=== PATIENT | female | born 1965 | race Caucasian/White ===

== ENCOUNTER → 2018-12-24 | Outpatient (CLI) | payer SELFPAY | END | disposition home or self-care (01) | LOC: LAB 15:43 → LAB SHORT 15:43 | DX: L08.9 Local infection of the skin and subcutaneous tissue, unspecified (principal) | CPT/HCPCS: 87070; 87075; 87205 ==

== ENCOUNTER 2021-04-03 16:52 | Inpatient (IN) | payer OTHER ==
[~2021-04-03] VITALS: Ht 160 cm; Wt 85.0 kg
[2021-04-03 17:41] LABS: Hematocrit 46.1 % (33.0-51.0); Mean Corpuscular HGB 31.7 pg (26.0-34.0); Mean Corpuscular HGB Conc 34.7 g/dL (31.5-36.5); Mean Corpuscular Volume 92 fL (80-100); Mean Platelet Volume 11.5 fL (9.1-12.4); Platelet Count 271 K/mm3 (150-400); RDW Coefficient Variation 12.6 % (11.7-14.2); RDW Standard Deviation 42.2 fL (35.1-46.3); Red Blood Cell Count 5.04 M/mm3 (3.80-5.20); White Blood Cell Count 18.71 K/mm3 (4.00-11.30)
[2021-04-03 18:02] LABS: Albumin, Blood 3.1 g/dL (3.4-5.0); Albumin/Globulin Ratio 0.7 (0.8-1.8); Bilirubin, Total 0.8 mg/dL (0.1-1.0); Bun/Creatinine Ratio 22.3 (12.0-20.0); Calcium, Blood 9.9 mg/dL (8.5-10.1); Creatinine, Blood 1.03 mg/dL (0.40-1.00); Globulin, Blood 4.5 g/dL (2.2-4.0); Potassium, Blood 4.2 mmol/L (3.5-5.5); Total Protein, Blood 7.6 g/dL (6.4-8.2)
[2021-04-03 18:16] LABS: BAND PERCENT MAN 33 % (0-8); BASOPHILS PERCENT MAN 0 % (0-2); EOSINOPHILS PERCENT MAN 0 % (0-6); LYMPHOCYTES ABSOLUTE MAN 0.93 K/mm3 (0.84-5.20); LYMPHOCYTES PERCENT MAN 5 % (21-46); METAMYELOCYTE ABSOLUTE MAN 0.18 K/mm3 (0.00-0.00); METAMYELOCYTE PERCENT MAN 1 % (0-0); MONOCYTES ABSOLUTE MAN 0.18 K/mm3 (0.16-1.47); MONOCYTES PERCENT MAN 1 % (4-13); SEG NEUTROPHILS PERCENT MAN 60 % (41-73); TOTAL CELLS COUNTED 100
[2021-04-03 21:09] LABS: Source, Urine Clean Catch
[2021-04-03 21:32] LABS: Appearance, Urine Clear (Clear); Bilirubin, Urine Neg (Neg); Blood, Urine 1+ (Neg); Color, Urine Yellow (P-Yellow); Glucose Qualitative, Urine Neg (Neg); Ketones, Urine Neg (Neg); Leukocyte Esterase, Urine Neg (Neg); Nitrite, Urine Neg (Neg); Protein, Urine 1+ (Neg); Specific Gravity, Urine 1.015 (1.003-1.022); Urobilinogen, Urine NORM (Normal); pH, Urine 6.5 (5.0-8.0)
[2021-04-03 21:44] LABS: International Normalized Ratio 1.19; Prothrombin Time Results 12.4 Sec (9.7-11.5)
[2021-04-03 22:27] LABS: Bacteria Few /hpf; Squamous Epithelial Cells Rare /hpf (Few); White Blood Cells, Urine 0-2 /hpf (0-5)
--- NOTE | 2021-04-04 04:09 | NUR ---
SHIFT SUMMARY: RECEIVED PT. FROM ER, AOX4, INDEPENDENT WITH AMBULATION. NO COUGING NOTED SINCE ADMISSION, BREATH SOUNDS DIMINISHED AT THE BASES. VOIDING WELL TO THE BATHROOM. VASCULAR ACCESS TO RIGHT AC INFUSING WELL. COMPLAINTS OF ABDOMINAL PAIN MEDICATED, SEE EMAR. NPO STARTED SINCE ADMISSION TO THE UNIT.PT. DENIES SOB/LABORED BREATHING. O2 SAT OF 95% ON RA.PT. DENIES TAKING ANY DAILY MEDICATIONS. NO NEW ISSUES NOTED, WILL CONTINUE TO MONITOR.
[2021-04-04 04:49] LABS: BASOPHILS ABSOLUTE AUTO 0.01 K/mm3 (0.00-0.23); BASOPHILS PERCENT AUTO 0 % (0-2); Hematocrit 37.8 % (33.0-51.0); Hemoglobin 12.9 g/dL (11.5-16.0); Mean Corpuscular HGB Conc 34.1 g/dL (31.5-36.5); Mean Corpuscular Volume 94 fL (80-100); Mean Platelet Volume 11.1 fL (9.1-12.4); Platelet Count 207 K/mm3 (150-400); RDW Coefficient Variation 12.5 % (11.7-14.2); RDW Standard Deviation 43.6 fL (35.1-46.3); Red Blood Cell Count 4.03 M/mm3 (3.80-5.20); White Blood Cell Count 11.79 K/mm3 (4.00-11.30)
[2021-04-04 04:58] LABS: EOSINOPHILS PERCENT AUTO 0 % (0-6); IMMATURE GRAN ABSOLUTE AUTO 0.09 K/mm3 (0.00-0.10); IMMATURE GRAN PERCENT AUTO 1 % (0-1); LYMPHOCYTES ABSOLUTE AUTO 0.78 K/mm3 (0.84-5.20); LYMPHOCYTES PERCENT AUTO 7 % (21-46); MONOCYTES ABSOLUTE AUTO 0.19 K/mm3 (0.16-1.47); MONOCYTES PERCENT AUTO 2 % (4-13); NEUTROPHILS ABSOLUTE AUTO 10.72 K/mm3 (1.96-9.15); NEUTROPHILS PERCENT AUTO 91 % (41-73)
[2021-04-04 05:07] LABS: Anion Gap 6 mmol/L (6-16); Blood Urea Nitrogen 16 mg/dL (8-24); Bun/Creatinine Ratio 22.5 (12.0-20.0); CO2, Blood 24 mmol/L (21-32); Calcium, Blood 8.7 mg/dL (8.5-10.1); Chloride, Blood 103 mmol/L (98-108); Creatinine, Blood 0.71 mg/dL (0.40-1.00); Glomerular Filtration Rate >60 (60-); Glucose, Blood 113 mg/dL (70-99); Potassium, Blood 4.1 mmol/L (3.5-5.5); Sodium, Blood 133 mmol/L (136-145)
--- NOTE | 2021-04-04 06:13 | NUR ---
PT. REFUSED TO WEAR HOSPITAL SOCKS, SHE PREFERRED TO USE HER OWN SLIPPERS.
--- NOTE | 2021-04-04 14:21 | NUR ---
History, Chart, Medications and Allergies reviewed before start of procedure.Patient confirms NPO status and agrees with scheduled surgery. Pre-Op teaching done. Pt verbalizes understanding.
--- NOTE | 2021-04-04 18:27 | NUR ---
PATIENT IS CURRENTLY IN SURGERY. PATIENT LEFT THE FLOOR AT ABOUT [address] ANDERSON TODAY.
--- NOTE | 2021-04-04 19:33 | NUR ---
RECEIVED PATIENT FROM OR ABOUT 1920. ALERT AND ORIENTED X'S 4, NO ACUTE DISTRESS NOTED, PATIENT DENIES PAIN OR DISCOMFORT. RESPIRATIONS EVEN AND UNLABORED, PATIENT IS DIAPHORETIC, VS STABLE. COLOSTOMY IN PLACE TO LLQ, STOMA DARK RED. ALATORRE CATHETER IN PLACE, PATENT. RESTING PEACEFULLY IN BED, SAFETY MAINTAINED, CALL JOHNSON IN REACH.
--- NOTE | 2021-04-04 19:49 | NUR ---
AZIZA DRESSING CLEAN DRY AND INTACT TO MIDLINE ABDOMEN.
[2021-04-05 05:34] LABS: Hematocrit 40.5 % (33.0-51.0); Hemoglobin 13.1 g/dL (11.5-16.0); Mean Corpuscular HGB 31.4 pg (26.0-34.0); Mean Corpuscular HGB Conc 32.3 g/dL (31.5-36.5); Mean Corpuscular Volume 97 fL (80-100); Mean Platelet Volume 11.8 fL (9.1-12.4); Platelet Count 192 K/mm3 (150-400); RDW Coefficient Variation 12.8 % (11.7-14.2); RDW Standard Deviation 45.8 fL (35.1-46.3); Red Blood Cell Count 4.17 M/mm3 (3.80-5.20); White Blood Cell Count 9.42 K/mm3 (4.00-11.30)
[2021-04-05 05:58] LABS: BAND PERCENT MAN 7 % (0-8); BASOPHILS PERCENT MAN 0 % (0-2); EOSINOPHILS PERCENT MAN 0 % (0-6); LYMPHOCYTES ABSOLUTE MAN 0.75 K/mm3 (0.84-5.20); LYMPHOCYTES PERCENT MAN 8 % (21-46); MONOCYTES ABSOLUTE MAN 0.18 K/mm3 (0.16-1.47); MONOCYTES PERCENT MAN 2 % (4-13); NEUTROPHILS ABSOLUTE MAN 8.47 K/mm3 (1.96-9.15); SEG NEUTROPHILS PERCENT MAN 83 % (41-73); TOTAL CELLS COUNTED 100
--- NOTE | 2021-04-05 06:16 | NUR ---
MEDICATED WITH FENTANYL 50 MCG ALMOST Q2HRS FOR PAIN MANAGEMENT. MEDICATED WITH TORADOL 30MG IV X'S 1, EFFECTIVE. COLOSOTOMY TO LLQ CLEAN DRY AND INTACT WITH SMALL AMOUNT OF BROWN STOOL. BOWEL SOUNDS PRESENT. AZIZA DRESSING CLEAN DRY AND INTACT TO MIDLINE ABDOMEN. ALATORRE CATHTER DRAINING TEA COLORED URINE. LR INFUSING AT 100ML/HR. CURRENTLY RESTING PEACEFULLY IN BED, SAFETY MAINTAINED, CALL JOHNSON IN REACH.
[2021-04-05 06:40] LABS: Anion Gap 7 mmol/L (6-16); Blood Urea Nitrogen 13 mg/dL (8-24); Bun/Creatinine Ratio 17.3 (12.0-20.0); CO2, Blood 25 mmol/L (21-32); Calcium, Blood 8.1 mg/dL (8.5-10.1); Chloride, Blood 103 mmol/L (98-108); Creatinine, Blood 0.75 mg/dL (0.40-1.00); Glomerular Filtration Rate >60 (60-); Glucose, Blood 133 mg/dL (70-99); Potassium, Blood 5.3 mmol/L (3.5-5.5); Sodium, Blood 135 mmol/L (136-145)
--- NOTE | 2021-04-05 09:38 | NUR ---
PATIENT UP TO SIDE OF BED AND THEN STAND, TOLERATE WELL SO AMBULATE TO DOOR AND BACK TO BED. TORADOL GIVEN FOR PAIN MANAGEMENT AND PT. VERBALIZE RELIEF. TAKING CLEAR LIQUID BREAKFAST WITHOUT PROBLEM, DENIES NAUSEA. SCD'S PLACED BACK ON PT. AND PT. STATES SHE WANTS TO TAKE NAP. VSS. SATS 95% ON ROOM AIR, OXYGEN REMOVED.
--- NOTE | 2021-04-05 14:29 | NUR ---
PATIENT UP IN ROOM AMBULATING WITH IVF INFUSING, ALATORRE INTACT. DENIES NAUSEA, TAKING CLEAR LIQUIDS. COLOSTOMY PUTTING OUT VERY SMALL AMOUNG SOFT BROWN STOOL, NO FLATUS AT THIS TIME. PICCO DRSG. INTACT. INSTRUCTED PT. TO USE CALL LIGHT FOR ANY NEEDS, CONCERNS, COMPLAINTS.
--- NOTE | 2021-04-05 16:41 | NUR ---
DR. ANDERSON IN TO SEE PATIENT AT THIS TIME.
--- NOTE | 2021-04-06 05:16 | NUR ---
ALTERNATED BTW FENTANYL 50MCG AND TORADOL 30MG FOR PAIN MANAGEMENT, PATIENT RECEIVED SHORT TERM RELIEF FROM MEDICATIONS. COLOSTOMY CLEAN DRY AND INTACT, DRAINING BROWN SOFT STOOL. ALATORRE CATHETER PATENT DRAINING DARK ERICK URINE. AZIZA DRESSING INTACT. NO ACUTE DISTRESS NOTED, RESPIRATIONS EVEN AND UNLABORED. SAEFTY MAINTAINED, CALL JOHNSON IN REACH.
--- NOTE | 2021-04-06 06:06 | NUR ---
DISCONTINUED ALATORRE CATHETER AT 0600, TOLERATED WELL.
--- NOTE | 2021-04-06 09:41 | NUR ---
PT. UP IN CHAIR EATING BREAKFAST. RAPID COVID TEST COMPLETE AND SENT TO LAB.
--- NOTE | 2021-04-06 12:11 | NUR ---
PT. TOLERATING FULL LIQUID DIET, DENIES NAUSEA. DID DECLINE CREAM OF WHEAT THIS A.M. BUT HAD RASPBERRY YOGURT INSTEAD. NORCO GIVEN (ONE) FOR 5/10 DISCOMFORT EARLIER. VERBALIZE RELIEF.
--- NOTE | 2021-04-06 18:20 | NUR ---
DR. ANDERSON IN TO SEE PATIENT THIS AFTERNOON. PATIENT REPORT "BURPING" BAG OF GAS TODAY. TOLERATING FULL LIQUID, NEW ORDER RECIEVED TO ADVANCE DIET TOLERATED.
--- NOTE | 2021-04-07 05:35 | NUR ---
MEDICATED WITH NORCO X'S 2 FOR PAIN MANAGEMENT, EFECTIVE RELIEF. SLEPT WELL THROUGH NIGHT. COLOSOMY INTACT, STOMA RED, NOTED SMALL AMT OF BROWN STOOL IN BAG. AZIZA DRESSING INTACT. UP AD HARVEY WITH SUPERVISION. SAFETY MAINTAINED, CALL JOHNSON IN REACH.
--- NOTE | 2021-04-07 17:04 | NUR ---
SHIFT SUMMARY NO ACUTE VENTS THIS SHIFT, VSS. PT ALERT AND ORIENTED, CALLS APPROPRIATELY. ABLE TO AMBULATE INDEPENDENTLY IN ROOM. PT TRANSITIONER TO ORAL ABX THIS SHIFT. PATIENT COMPLAINED OF ABDOMINAL PAIN THROUGHOUT SHIFT, MEDICATED PER EMAR TO PT'S SATISFACTION. PT HAD SMALL BROWN, SOFT OUTPUT VIA OSTOMY, SOME GAS NOTED. 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
--- NOTE | 2021-04-08 06:02 | NUR ---
MEDIICATED FOR PAIN MANAGEMENT X'1, EFFECTIVE RELIEF. SLEPT IN LONG INTERVALS THROUGH NIGHT. DRAINED COLOSTOMY TWICE, MODERATE AMOUNT OF SOFT STOOL BOTH TIMES. NO ACUTE DISTRESS NOTED. BRUISING REMAINS UNDER BILATERAL EYES. AZIZA DRESSING INTACT. SAFETY MAINTAINED, CALL JOHNSON IN REACH.
[2021-04-08] MEDS ORDERED: DOCU100 PO (12:44)
[2021-04-08] MEDS ORDERED: Norco 5-325 Ta1 EACH PO (12:45)
[2021-04-08] MEDS ORDERED: METR500 PO (12:46)
[2021-04-08] MEDS ORDERED: LEVFLO500 PO (12:46)
--- NOTE | 2021-04-08 14:00 | NUR ---
EDUCATION OSTOMY EDUCATION DONE AT THIS TIME, PT WAS OPEN AND RECEPTIVE TO INSTRUCTION. 2 OSTOMY KITS WERE GIVEN TO THE PT FOR D/C. SUPPLY ORDER FAXED, HOME DEEPAK TO F/U WITH PT. D/C INSTRUCTIONS & RX GIVEN AT THIS TIME. PT STATES UNDERSTANDING. STOMA REMAINS BEEFY RED, FORMED BROWN STOOL EMPTIED FROM BAG. IV D/C'D WNL.
--- NOTE | 2021-04-08 15:35 | NUR ---
DISCHARGE PT D/C TO HOME WITH HER MOM. PT TAKEN TO PRIVATE VEHICLE VIA W/C, MASK IN PLACE, SUPPLIES & EDUCATION MATERIAL SENT WITH PT.
== END 2021-04-08 15:18 | disposition home health service (06) | DRG 853 ==
LOC: ER 16:52 → SURS 22:58
PROVIDERS: Physician Assistant; Student in an Organized Health Care Education/Training Program; ADMIT Surgery
PROC: 8E0ZXY6 Isolation (ICD-10-PCS; 2021-04-03)
PROC: 0DBN0ZZ Excision of Sigmoid Colon, Open Approach (ICD-10-PCS; principal; 2021-04-05)
PROC: 0D1M0Z4 Bypass Descending Colon to Cutaneous, Open Approach (ICD-10-PCS; 2021-04-05)
DX: A41.9 Sepsis, unspecified organism (principal); U07.1 COVID-19; Z88.0 Allergy status to penicillin; Z88.5 Allergy status to narcotic agent
CPT/HCPCS: 36415; 71045; 74177; 80048; 80053; 81001; 83605; 83690; 85025; 85610; 85730; 86850; 86900; 86901; 87040; 87070; 87075; 87076; 87077; 87185; 87186; 87205; 88309; 96365-59; 96367; 96375; 99285-25; A9270; J0744; J1100; J1170; J1650; J1885; J2250; J2370; J2405; J2550; J2704; J2765; J3010; J7120; Q9967

== ENCOUNTER 2021-04-09 07:46 | Emergency (ER) | payer OTHER ==
[~2021-04-09] VITALS: Ht 160 cm; Wt 87.1 kg
[~2021-04-09 07:46] MED LIST: DOCU100 PO; LEVFLO500 PO; METR500 PO; Norco 5-325 Ta1 EACH PO
--- NOTE | 2021-04-09 10:28 | NUR ---
THIS RN TO ER AT APROX 0940 TO PROVIDE OSTOMY EDUCATION AND CHANGE BOTH OSTOMY APPLIANCE AND PICCO DRESSING IT WAS SATURATED WITH STOOL. PT EDUCATED ON HOW TO CLEAN AND PREP THE SKIN, APPLYING WAFFER, KEEPING INCISION SITE CLEAN/DRY. PT VERBALIZED UNDERSTANDING OF THESE INSTRUCTIONS.
== END 2021-04-09 10:14 | disposition home or self-care (01) ==
LOC: ER 07:46
DX: Z43.3 Encounter for attention to colostomy (principal); Z87.891 Personal history of nicotine dependence
CPT/HCPCS: 99282

== ENCOUNTER 2021-05-02 06:11 | Day surgery (SDC) | payer OTHER ==
[~2021-05-02] VITALS: Ht 160 cm; Wt 80.5 kg
--- NOTE | 2021-05-02 09:07 | NUR ---
Patient up to Ambulate independently. Gait steady. Patient States Post-Procedure ride home has been arranged. Discharge instructions reviewed with patient. Patient verbalizes understanding. Copy given to patient to take home. Discharged via wheelchair to private car for ride home. WINSTON YADAV.
== END 2021-05-02 23:17 | disposition home or self-care (01) ==
LOC: ORSCMMR 06:11 → ORD 07:30 → ORSCMMR 07:30
PROVIDERS: Surgery
PROC: B543ZZA Ultrasonography of Right Jugular Veins, Guidance (ICD-10-PCS; principal; 2021-05-02 07:30)
PROC: 05HM33Z Insertion of Infusion Device into Right Internal Jugular Vein, Percutaneous Approach (ICD-10-PCS; principal; 2021-05-02 07:30)
DX: C18.9 Malignant neoplasm of colon, unspecified (principal); F17.210 Nicotine dependence, cigarettes, uncomplicated; K21.9 Gastro-esophageal reflux disease without esophagitis; Z79.899 Other long term (current) drug therapy
CPT/HCPCS: 77001; C1788; J0690; J1100; J1642; J1885; J2370; J2405; J2704; J3010; J7120

== ENCOUNTER 2022-03-29 06:43 | Day surgery (SDC) | payer OTHER ==
[~2022-03-29] VITALS: Ht 160 cm; Wt 83.5 kg
== END 2022-03-29 08:50 | disposition home or self-care (01) ==
LOC: ORSCSDS 06:43
PROVIDERS: Surgery
PROC: 0DBL8ZX Excision of Transverse Colon, Via Natural or Artificial Opening Endoscopic, Diagnostic (ICD-10-PCS; principal; 2022-03-29 08:00)
PROC: 0DJD8ZZ Inspection of Lower Intestinal Tract, Via Natural or Artificial Opening Endoscopic (ICD-10-PCS; principal; 2022-03-29 08:00)
DX: C18.9 Malignant neoplasm of colon, unspecified (principal); D12.3 Benign neoplasm of transverse colon; E66.9 Obesity, unspecified; Z68.31 Body mass index [BMI] 31.0-31.9, adult; Z87.891 Personal history of nicotine dependence; Z85.038 Personal history of other malignant neoplasm of large intestine
CPT/HCPCS: 88305; J2704; J7120